=== PATIENT | female | born 1950 | race Two or more races ===

== ENCOUNTER 2023-07-29 22:48 | Emergency (ER) | payer OTHER ==
[~2023-07-29] VITALS: Ht 160 cm; Wt 83.5 kg
[2023-07-29] MEDS ORDERED: HYDROCHLOROTH12.5 MG (23:17)
[2023-07-29] MEDS ORDERED: DULOXETINE HCL20 MG (23:18)
[2023-07-29] MEDS ORDERED: CRESTOR10 MG (23:18)
[2023-07-29] MEDS ORDERED: GRALISE600 MG (23:18)
[2023-07-29] MEDS ORDERED: BAYER (23:18)
[2023-07-29] MEDS ORDERED: KEPPRA100 MG/1 M (23:20)
[2023-07-30] MEDS ORDERED: MUPIROCIN1 G1 TOP (03:48)
== END 2023-07-30 05:11 | disposition home or self-care (01) ==
LOC: ER 22:48
DX: S01.81XA Laceration without foreign body of other part of head, initial encounter (principal); W18.30XA Fall on same level, unspecified, initial encounter; Y93.89 Activity, other specified; Y92.59 Other trade areas as the place of occurrence of the external cause; Y99.9 Unspecified external cause status; Z91.040 Latex allergy status; Z91.013 Allergy to seafood
CPT/HCPCS: 70450; 90471; 90714; 99284; J1670